=== PATIENT | female | born 1970 | race Caucasian/White ===

== ENCOUNTER 2018-04-03 23:33 | Observation (INO) | payer OTHER ==
[~2018-04-03] VITALS: Ht 170.2 cm; Wt 92.2 kg
[~2018-04-03 23:33] MED LIST: ATENOLOL25 MG OR; ATENOLOL25 MG PO; CEPHALEXIN500 MG PO; CIPRODEX1 ML AD; COUMADIN2 MG OR; COUMADIN2 MG PO; COUMADIN4 MG OR; COUMADIN6 MG OR; EFFEXOR37.5 MG PO; EFFEXOR50 MG OR; FLEXERIL10 MG PO; FLEXERIL5 MG PO; FOLIC ACID1 MG PO; LASIX 20 MG20 MG/TAB PO; PERCOCET 5/325M1 TAB OR; PERCOCET 5/325M1 TAB PO; PREVACID30 M1 OR; PRILOSEC20 MG PO; PRILOSEC40 MG PO; PROTONIX40 M2 PO; TANDEM OR; TESSALON200 MG PO; VENLAFAXINE HC150 M1 PO; WARFARIN2 MG PO; WARFARIN4 MG PO; XANAX1 MG PO; ZOFRAN ODT4 MG PO; ZPAK PO; [UNRECOGNIZED DRUG - OTHER] AD; [UNRECOGNIZED DRUG - SUPPLY]
--- NOTE | 2018-04-03 23:45 | NUR ---
PT AMBULATED TO ROOM
[2018-04-04 00:36] LABS: HEMATOCRIT 43.2 % (37.0-47.0); HEMOGLOBIN 14.5 g/dl (12.0-16.0); IMMATURE GRANULOCYTES 0.4 % (0.0-5.0); MEAN CELL VOLUME 86.2 fL CALC (80.0-100.0); MEAN CORPUSCULAR HGB 28.9 pG CALC (26.0-32.0); MEAN CORPUSCULAR HGB CONC 33.6 g/L CALC (32.0-36.0); NEUT# 8.72 thou/uL (2.00-7.15); RED BLOOD COUNT 5.01 mill/uL (4.20-5.60); RED CELL DISTRI WIDTH 14.5 % (11.5-15.5); URINE BILIRUBIN - DIPSTICK NEGATIVE (NEGATIVE); URINE BLOOD DIPSTICK SMALL (NEGATIVE); URINE CLARITY SL CLOUDY; URINE COLOR YELLOW; URINE GLUCOSE - DIPSTICK NEGATIVE (NEGATIVE); URINE KETONE NEGATIVE (NEGATIVE); URINE LEUK ESTERASE NEGATIVE (NEGATIVE); URINE NITRITE - DIPSTICK NEGATIVE (Negative); URINE PH 5.5 (4.5-8.0); URINE PROTEIN - DIPSTICK NEGATIVE (NEG-TRACE); URINE SPECIFIC GRAVITY >=1.030; URINE UROBILINOGEN - DIPSTICK 0.2 E.U./dL (0.2)
[2018-04-04 00:45] LABS: INTERNATIONAL NORMALIZED RATIO 2.3 RATIO (0.7-1.3); PROTHROMBIN TIME 26.2 SECONDS (9.0-12.5)
[2018-04-04 00:46] LABS: ALBUMIN 4.4 g/dL (3.2-5.0); ALKALINE PHOSPHATASE 123 u/l (38-126); AMYLASE 44 u/l (30-110); ANION GAP 15 (6-22 (CALC)); BILIRUBIN, TOTAL 0.6 mg/dL (0.0-1.4); BUN 19 mg/dL (7-17); BUN/CREATININE RATIO 28 (12-20 (CALC)); CARBON DIOXIDE 27 mmol/l (22-30); CHLORIDE 99 mmol/l (95-108); CREATININE 0.7 mg/dL (0.5-1.0); GFR > 60 ML/MIN (>=60 (CALC)); GFR FOR AFR.AMER. > 60 ML/MIN (>=60 (CALC)); LIPASE 19 u/l (23-300); POTASSIUM 3.7 mmol/l (3.5-5.1); SGOT/AST 24 u/l (14-36); SGPT/ALT 33 u/l (9-52); SODIUM 137 mmol/l (137-146); TOTAL PROTEIN 7.2 g/dL (6.3-8.2)
[2018-04-04 00:53] LABS: URINE BACTERIA FEW hpf; URINE SQUAMOUS EPITHELIAL CELL MODERATE EPI/hpf (0-FEW); URINE WBC 0-2 WBC/hpf (0-5)
--- NOTE | 2018-04-04 01:30 | NUR ---
TO CT VIA W/C
--- NOTE | 2018-04-04 01:44 | NUR ---
RETURNED TO CT VIA W/C.
[2018-04-04] MEDS ORDERED: FOLIC ACID1 MG PO (02:26)
--- NOTE | 2018-04-04 02:53 | NUR ---
REPORT TO Cara GIVENS.
--- NOTE | 2018-04-04 03:00 | NUR ---
PT TO FLOOR WITHOUT INCIDENT. PWD. FEELS BETTER. VSS. RESP EASY REG. ABD SOFT. BBS CLEAR. 4+ APICAL. BS ACTIVE IN ALL FOUR. NO EDEMA.
[2018-04-04 03:10] VITALS: BP 105/72
--- NOTE | 2018-04-04 04:00 | NUR ---
PATIENT ADMITTED FROM ER VIA STRETCHER WITH ER STAFF IN ATTENDANCE. PATIENT ASSISTED TO THE BR TO VOID AND THEN BACK TO BED. AWAKE ALERT AND ORIENTEDX3. PATIENT ADMITTED FOR POSS SBO. CAME TO THE ER AFTER HAVING ABD PAIN STARTING JUST AFTER LUNCH YESTERDAY AND THEN VOMITTING BEFORE COMING TO THE ER. DENIES ANY PAIN OR NAUSEA AT THIS TIME. INSTRUCTED PATIENT THAT SHE IS NPO AT THIS TIME. PROVIDED WITH TOOTHETTE SWAB FOR COMFORT. PATIENT STATES THAT HER LAST BM WAS YESTERDAY-SOFT LIGHT BROWN IN COLOR. ABD IS SOFT-HYPOACTIVE BS. VOIDING QS YELLOW URINE WITHOUT ANY DIFFICULTY. PATIENT WITH MECHANICAL AORTIC VALVE AND TAKES COUMADIN DAILY. ALLERGIC TO VANCOMYCIN. HEP LOCK TO RIGHT WRIST INTACT-FLUSHED WITH SALINE WITH GOOD BLOOD RETURN. IVF NS HUNG AND INFUSING AT 125CC/HR. SAFETY PRECAUTIONS REVIEWED WITH PATIENT INSRUCTED ON USE OF NURSE CALL LIGHT SYSTEM AND TV REMOTE. CALL LIGHT IN REACH. WILL CONT TO MONITOR.
--- NOTE | 2018-04-04 07:06 | NUR ---
BEDSIDE REPORT RECEIVED BY TATY. PT IS RESTING IN BED WITH NO S/S OF DISTRESS NOTED. PT DENIES NEEDS AT THIS TIME. CALL LIGHT IN REACH.
[2018-04-04 07:44] VITALS: BP 90/57
--- NOTE | 2018-04-04 08:00 | NUR ---
ASSSEMENT DONE. RESPS EVEN AND UNLABORED. NS 125ML/HR INFUSING WELL. PT STATED PAIN IN ABDOMEN IS 1/10 BUT DENIES PAIN MEDICATION AT THIS TIME. SAFETY PRECAUTIONS REINFORCED AND CALL LIGHT IN REACH.
--- NOTE | 2018-04-04 08:48 | NUR ---
BRAYAN BLEVINS AT BEDSIDE TO ASSESS PT.
--- NOTE | 2018-04-04 09:19 | NUR ---
PT WENT TO X-RAY VIA WHEELCHAIR BY VOLUNTEER.
--- NOTE | 2018-04-04 09:38 | NUR ---
DR. HARP IN ROOM TO ASSESS PT, BUT PT IS STILL IN X-RAY. STATED WILL CHECK ON PT LATER.
--- NOTE | 2018-04-04 11:23 | NUR ---
PT ARRIVED BACK ON MS BY WHEELCHAIR @ 1124. PT WAS TRANSFERED BY A VOLUNTEER.
--- NOTE | 2018-04-04 11:27 | NUR ---
PT BACK FROM X-RAY. PT DENIES NEEDS AT THIS TIME. NO S/S OF DISTRESS NOTED. CALL LIGHT IN REACH.
--- NOTE | 2018-04-04 12:56 | NUR ---
DR. REZA AT BEDSIDE TO ASSESS PT.
--- NOTE | 2018-04-04 16:00 | NUR ---
PT IS RESTING IN BED AND DENIES NEEDS AT THIS TIME. CALL LIGHT IN REACH.
[2018-04-04] MEDS ORDERED: COUMADIN4 MG PO (17:10)
--- NOTE | 2018-04-04 18:01 | NUR ---
Discharge instructions given. Patient verbalizes understanding of same. Discharged in stable condition via Wheelchair to Home with staff. All belongings sent with pt.
== END 2018-04-04 18:06 | disposition home or self-care (01) | DRG 392 ==
LOC: ED 23:33 → ED-I 23:59 → ED 23:59 → ED-I 04-04 02:10 → ED 04-04 02:28 → MS2 04-04 02:30
PROVIDERS: Emergency Medicine; ADMIT Internal Medicine; ATTEND Internal Medicine
DX: K52.9 Noninfective gastroenteritis and colitis, unspecified (principal); I10 Essential (primary) hypertension; D50.9 Iron deficiency anemia, unspecified; Z79.891 Long term (current) use of opiate analgesic; Z79.01 Long term (current) use of anticoagulants; Z95.2 Presence of prosthetic heart valve
CPT/HCPCS: G0378; S0164

== ENCOUNTER 2018-10-08 15:26 | Emergency (ER) | payer OTHER ==
[~2018-10-08] VITALS: Ht 170.2 cm; Wt 90.9 kg
[~2018-10-08 15:26] MED LIST changes: +COUMADIN4 MG PO
[2018-10-08 16:03] LABS: HEMATOCRIT 47.1 % (37.0-47.0); HEMOGLOBIN 15.3 g/dl (12.0-16.0); IMMATURE GRANULOCYTES 0.4 % (0.0-5.0); MEAN CELL VOLUME 83.7 fL CALC (80.0-100.0); MEAN CORPUSCULAR HGB 27.2 pG CALC (26.0-32.0); MEAN CORPUSCULAR HGB CONC 32.5 g/L CALC (32.0-36.0); NEUT# 11.42 thou/uL (2.00-7.15); RED BLOOD COUNT 5.63 mill/uL (4.20-5.60); RED CELL DISTRI WIDTH 15.1 % (11.5-15.5)
[2018-10-08 16:16] LABS: ANION GAP 16 (6-22 (CALC)); BILIRUBIN, TOTAL 0.9 mg/dL (0.0-1.4); BUN 17 mg/dL (7-17); BUN/CREATININE RATIO 23 (12-20 (CALC)); CARBON DIOXIDE 26 mmol/l (22-30); CHLORIDE 100 mmol/l (95-108); CREATININE 0.8 mg/dL (0.5-1.0); GFR > 60 ML/MIN (>=60 (CALC)); GFR FOR AFR.AMER. > 60 ML/MIN (>=60 (CALC)); LIPASE 22 u/l (23-300); SGOT/AST 33 u/l (14-36); SODIUM 137 mmol/l (137-146)
[2018-10-08 16:18] LABS: ALBUMIN 5.2 g/dL (3.2-5.0); ALKALINE PHOSPHATASE 159 u/l (38-126); TOTAL PROTEIN 8.9 g/dL (6.3-8.2)
[2018-10-08 16:22] LABS: INTERNATIONAL NORMALIZED RATIO 1.8 RATIO (0.7-1.3); PROTHROMBIN TIME 18.6 SECONDS (9.0-12.5)
[2018-10-08 16:25] VITALS: BP 130/84
[2018-10-08 16:40] LABS: URINE BILIRUBIN - DIPSTICK NEGATIVE (NEGATIVE); URINE BLOOD DIPSTICK NEGATIVE (NEGATIVE); URINE COLOR YELLOW; URINE GLUCOSE - DIPSTICK NEGATIVE (NEGATIVE); URINE KETONE 15 mg/dL (NEGATIVE); URINE LEUK ESTERASE NEGATIVE (NEGATIVE); URINE NITRITE - DIPSTICK NEGATIVE (Negative); URINE PH 5.5 (4.5-8.0); URINE PROTEIN - DIPSTICK NEGATIVE (NEG-TRACE); URINE SPECIFIC GRAVITY >=1.030; URINE UROBILINOGEN - DIPSTICK 0.2 E.U./dL (0.2)
[2018-10-08] MEDS ORDERED: ONDANSETRON4 MG PO (18:00)
== END 2018-10-08 18:12 | disposition left against medical advice (07) | DRG 390 ==
LOC: ED 15:26 → ED-I 17:40 → ED 18:12
PROVIDERS: Family Medicine
DX: K56.609 Unspecified intestinal obstruction, unspecified as to partial versus complete obstruction (principal); I10 Essential (primary) hypertension; F17.210 Nicotine dependence, cigarettes, uncomplicated; Z91.19 Patient's noncompliance with other medical treatment and regimen
CPT/HCPCS: Q9967

== ENCOUNTER 2019-02-18 19:43 | Emergency (ER) | payer OTHER ==
[~2019-02-18] VITALS: Ht 170.2 cm; Wt 91.2 kg
[~2019-02-18 19:43] MED LIST changes: +ONDANSETRON4 MG PO
[2019-02-18 21:14] LABS: URINE BLOOD DIPSTICK NEGATIVE (NEGATIVE); URINE COLOR YELLOW; URINE GLUCOSE - DIPSTICK NEGATIVE (NEGATIVE); URINE KETONE >=80 mg/dL (NEGATIVE); URINE LEUK ESTERASE NEGATIVE (NEGATIVE); URINE NITRITE - DIPSTICK NEGATIVE (Negative); URINE PH 6.5 (4.5-8.0); URINE PROTEIN - DIPSTICK TRACE mg/dL (NEG-TRACE); URINE UROBILINOGEN - DIPSTICK 0.2 E.U./dL (0.2)
[2019-02-18] MEDS ORDERED: LOPRESSOR25 MG PO (21:16)
[2019-02-18 21:18] LABS: URINE BILIRUBIN - DIPSTICK NEGATIVE (NEGATIVE)
[2019-02-18] MEDS ORDERED: MAGIMIN80 MG PO (21:18)
[2019-02-18] MEDS ORDERED: CHELATED POTASS95 MG PO (21:18)
[2019-02-18] MEDS ORDERED: OTEZLA 10 & 201 TAB PO (21:18)
[2019-02-18] MEDS ORDERED: WARFARIN4 MG PO (21:19)
[2019-02-18] MEDS ORDERED: WARFARIN2 MG PO (21:19)
[2019-02-18] MEDS ORDERED: ALPRAZOLAM0.25 MG PO (21:20)
[2019-02-18 21:21] LABS: HEMATOCRIT 38.4 % (37.0-47.0); HEMOGLOBIN 12.1 g/dl (12.0-16.0); IMMATURE GRANULOCYTES 0.4 % (0.0-5.0); MEAN CELL VOLUME 77.9 fL CALC (80.0-100.0); MEAN CORPUSCULAR HGB 24.5 pG CALC (26.0-32.0); MEAN CORPUSCULAR HGB CONC 31.5 g/L CALC (32.0-36.0); NEUT# 5.7 thou/uL (2.00-7.15); RED BLOOD COUNT 4.93 mill/uL (4.20-5.60); RED CELL DISTRI WIDTH 15.4 % (11.5-15.5)
[2019-02-18 21:30] LABS: PROTHROMBIN TIME 14.7 SECONDS (9.0-12.5)
[2019-02-18 21:31] LABS: INTERNATIONAL NORMALIZED RATIO 1.4 RATIO (0.7-1.3)
[2019-02-18 21:32] LABS: ALBUMIN 4.8 g/dL (3.2-5.0); ALKALINE PHOSPHATASE 120 u/l (38-126); AMYLASE 90 u/l (30-110); BILIRUBIN, TOTAL 0.6 mg/dL (0.0-1.4); BUN 13 mg/dL (7-17); BUN/CREATININE RATIO 20 (12-20 (CALC)); CARBON DIOXIDE 26 mmol/l (22-30); CHLORIDE 100 mmol/l (95-108); CREATININE 0.7 mg/dL (0.5-1.0); GFR > 60 ML/MIN (>=60 (CALC)); GFR FOR AFR.AMER. > 60 ML/MIN (>=60 (CALC)); LIPASE 25 u/l (23-300); SGOT/AST 26 u/l (14-36); SODIUM 137 mmol/l (137-146); TOTAL PROTEIN 7.8 g/dL (6.3-8.2)
[2019-02-18 21:34] LABS: ANION GAP 14 (6-22 (CALC)); POTASSIUM 3.4 mmol/l (3.5-5.1)
[2019-02-18 21:44] LABS: MYOGLOBIN 24 ng/mL (0 - 62)
[2019-02-18] MEDS ORDERED: LORTAB 1010 MG PO (23:13)
[2019-02-18 23:34] VITALS: BP 140/79
== END 2019-02-18 23:34 | disposition home or self-care (01) | DRG 392 ==
LOC: ED 19:43
PROVIDERS: Emergency Medicine
DX: R10.30 Lower abdominal pain, unspecified (principal); T47.4X5A Adverse effect of other laxatives, initial encounter; I10 Essential (primary) hypertension; F17.200 Nicotine dependence, unspecified, uncomplicated
CPT/HCPCS: Q9967

== ENCOUNTER 2019-09-28 | Emergency (ER) | payer OTHER ==
[~2019-09-28] MED LIST changes: +ALPRAZOLAM0.25 MG PO; +LASIX 20 MG TAB20 MG PO; -LASIX 20 MG20 MG/TAB PO; +LOPRESSOR25 MG PO; +LORTAB 1010 MG PO; +MAGIMIN80 MG PO; +OTEZLA 10 & 201 TAB PO; +POTASSIUM99 MG PO
[2019-09-28] MEDS ORDERED: LOPRESSOR 550 MG/TAB PO (15:43)
[2019-09-28] MEDS ORDERED: OMEPRAZOLE DR40 MG PO (15:44)
== END 2019-09-28 16:05 | disposition home or self-care (01) | DRG 605 ==
PROC: 0HQFXZZ Repair Right Hand Skin, External Approach (ICD-10-PCS; principal; 2019-09-28)
DX: S61.011A Laceration without foreign body of right thumb without damage to nail, initial encounter (principal); I10 Essential (primary) hypertension; F17.210 Nicotine dependence, cigarettes, uncomplicated; W27.8XXA Contact with other nonpowered hand tool, initial encounter; Y93.89 Activity, other specified; Y92.009 Unspecified place in unspecified non-institutional (private) residence as the place of occurrence of the external cause; Z79.01 Long term (current) use of anticoagulants

== ENCOUNTER 2019-09-29 13:15 | Emergency (ER) | payer OTHER ==
[~2019-09-29 13:15] MED LIST changes: +LOPRESSOR 550 MG/TAB PO; +OMEPRAZOLE DR40 MG PO
[2019-09-29 13:50] VITALS: BP 143/88
== END 2019-09-29 13:50 | disposition home or self-care (01) | DRG 950 ==
LOC: ED 13:15
DX: S61.011D Laceration without foreign body of right thumb without damage to nail, subsequent encounter (principal); X58.XXXD Exposure to other specified factors, subsequent encounter

== ENCOUNTER 2020-03-06 13:42 | Emergency (ER) | payer OTHER ==
[~2020-03-06] VITALS: Ht 170.2 cm; Wt 86.4 kg
[2020-03-06 15:31] LABS: URINE BILIRUBIN - DIPSTICK NEGATIVE (NEGATIVE); URINE BLOOD DIPSTICK NEGATIVE (NEGATIVE); URINE COLOR YELLOW; URINE GLUCOSE - DIPSTICK NEGATIVE (NEGATIVE); URINE KETONE NEGATIVE (NEGATIVE); URINE LEUK ESTERASE NEGATIVE (NEGATIVE); URINE NITRITE - DIPSTICK NEGATIVE (Negative); URINE PROTEIN - DIPSTICK NEGATIVE (NEG-TRACE); URINE SPECIFIC GRAVITY >=1.030; URINE UROBILINOGEN - DIPSTICK 0.2 E.U./dL (0.2)
[2020-03-06] MEDS ORDERED: DULCOLAX5 MG PO (15:43)
[2020-03-06] MEDS ORDERED: MIRALAX3350 N1 PO (15:43)
[2020-03-06] MEDS ORDERED: MAGNESIUM296 ML/BTL PO (15:43)
[2020-03-06 15:55] VITALS: BP 125/65
== END 2020-03-06 15:55 | disposition home or self-care (01) | DRG 392 ==
LOC: ED 13:42
PROVIDERS: Student in an Organized Health Care Education/Training Program
DX: K59.00 Constipation, unspecified (principal); I10 Essential (primary) hypertension; F17.200 Nicotine dependence, unspecified, uncomplicated

== ENCOUNTER 2021-02-03 21:40 | Emergency (ER) | payer OTHER ==
[~2021-02-03] VITALS: Ht 170.2 cm; Wt 109.0 kg
[~2021-02-03 21:40] MED LIST changes: +DULCOLAX5 MG PO; +MAGNESIUM296 ML/BTL PO; +MIRALAX3350 N1 PO
[2021-02-03] MEDS ORDERED: JANTOVEN2 MG PO (22:01)
[2021-02-03] MEDS ORDERED: JANTOVEN4 MG PO (22:03)
[2021-02-03] MEDS ORDERED: IRON325 M1 (22:07)
[2021-02-03] MEDS ORDERED: POTASSI24 XX (22:10)
[2021-02-03 22:15] LABS: HEMOGLOBIN 13.3 g/dl (12.0-16.0); IMMATURE GRANULOCYTES 0.3 % (0.0-5.0); MEAN CORPUSCULAR HGB 28.7 pG CALC (26.0-32.0); MEAN CORPUSCULAR HGB CONC 32.4 g/dL CAL (32.0-36.0); NEUT# 3.72 thou/uL (2.00-7.15); RED BLOOD COUNT 4.64 mill/uL (4.20-5.60); RED CELL DISTRI WIDTH 13.5 % (11.5-15.5)
[2021-02-03 22:19] LABS: MEAN CELL VOLUME 88.4 fL CALC (80.0-100.0)
[2021-02-03 22:30] LABS: HCG SERUM/URINE (NEG/POS) NEGATIVE (NEGATIVE)
[2021-02-03 22:33] LABS: URINE BILIRUBIN - DIPSTICK NEGATIVE (NEGATIVE); URINE BLOOD DIPSTICK NEGATIVE (NEGATIVE); URINE COLOR YELLOW; URINE GLUCOSE - DIPSTICK NEGATIVE (NEGATIVE); URINE KETONE NEGATIVE (NEGATIVE); URINE LEUK ESTERASE NEGATIVE (NEGATIVE); URINE PH 5.5 (4.5-8.0); URINE PROTEIN - DIPSTICK NEGATIVE (NEG-TRACE); URINE SPECIFIC GRAVITY >=1.030; URINE UROBILINOGEN - DIPSTICK 0.2 E.U./dL (0.2)
[2021-02-03 22:37] LABS: URINE NITRITE - DIPSTICK NEGATIVE (Negative)
[2021-02-03 22:50] LABS: ALBUMIN 4.1 g/dL (3.2-5.0); ALKALINE PHOSPHATASE 122 u/l (38-126); ANION GAP 10 (6-22 (CALC)); BILIRUBIN, TOTAL 0.5 mg/dL (0.0-1.4); BUN 23 mg/dL (7-17); BUN/CREATININE RATIO 24 (12-20 (CALC)); CARBON DIOXIDE 24 mmol/l (22-30); CHLORIDE 102 mmol/l (95-108); GFR 59 ML/MIN (>=60 (CALC)); GFR FOR AFR.AMER. > 60 ML/MIN (>=60 (CALC)); LIPASE 48 u/l (23-300); POTASSIUM 3.9 mmol/l (3.5-5.1); SGOT/AST 35 u/l (14-36); SODIUM 132 mmol/l (137-146); TOTAL PROTEIN 7.2 g/dL (6.3-8.2)
[2021-02-03 22:52] LABS: ACT PARTIAL THROMBO TIME 40.9 SECONDS (20.0-32.5); D-DIMER 0.5 mg/L (0.19-0.60); INTERNATIONAL NORMALIZED RATIO 2.1 RATIO (0.7-1.3); PROTHROMBIN TIME 21.4 SECONDS (9.0-12.5)
[2021-02-04 01:07] VITALS: BP 114/71
== END 2021-02-04 01:16 | disposition home or self-care (01) | DRG 310 ==
LOC: ED 21:40
DX: R00.2 Palpitations (principal); F41.9 Anxiety disorder, unspecified; I10 Essential (primary) hypertension; K21.9 Gastro-esophageal reflux disease without esophagitis; F17.200 Nicotine dependence, unspecified, uncomplicated; T43.506A Underdosing of unspecified antipsychotics and neuroleptics, initial encounter; Z91.138 Patient's unintentional underdosing of medication regimen for other reason; Z79.01 Long term (current) use of anticoagulants; Z20.822 Contact with and (suspected) exposure to COVID-19; Z95.2 Presence of prosthetic heart valve
CPT/HCPCS: Q9967

== ENCOUNTER 2021-03-17 16:57 | Inpatient (IN) | payer OTHER ==
[~2021-03-17] VITALS: Ht 170.2 cm; Wt 89.0 kg
[~2021-03-17 16:57] MED LIST changes: +IRON325 M1; +JANTOVEN2 MG PO; +JANTOVEN4 MG PO; +POTASSI24 XX
[2021-03-17 17:46] LABS: IMMATURE GRANULOCYTES 0.2 % (0.0-5.0); MEAN CELL VOLUME 87.8 fL CALC (80.0-100.0); MEAN CORPUSCULAR HGB 29.3 pG CALC (26.0-32.0); MEAN CORPUSCULAR HGB CONC 33.4 g/dL CAL (32.0-36.0); NEUT# 10.41 thou/uL (2.00-7.15); RED BLOOD COUNT 5.49 mill/uL (4.20-5.60); RED CELL DISTRI WIDTH 13.4 % (11.5-15.5)
[2021-03-17 17:51] LABS: HEMATOCRIT 48.2 % (37.0-47.0); HEMOGLOBIN 16.1 g/dl (12.0-16.0)
[2021-03-17 17:57] LABS: ALKALINE PHOSPHATASE 164 u/l (38-126); AMYLASE 73 u/l (30-110); ANION GAP 18 (6-22 (CALC)); BUN 19 mg/dL (7-17); BUN/CREATININE RATIO 23 (12-20 (CALC)); CARBON DIOXIDE 24 mmol/l (22-30); CHLORIDE 97 mmol/l (95-108); CREATININE 0.8 mg/dL (0.5-1.0); GFR > 60 ML/MIN (>=60 (CALC)); GFR FOR AFR.AMER. > 60 ML/MIN (>=60 (CALC)); LIPASE 30 u/l (23-300); MAGNESIUM 2.4 mg/dL (1.6-2.3); POTASSIUM 4.4 mmol/l (3.5-5.1); SGOT/AST 40 u/l (14-36); SODIUM 135 mmol/l (137-146)
[2021-03-17 17:59] LABS: ALBUMIN 5.1 g/dL (3.2-5.0); BILIRUBIN, TOTAL 0.9 mg/dL (0.0-1.4); TOTAL PROTEIN 9.4 g/dL (6.3-8.2)
--- NOTE | 2021-03-17 18:00 | NUR ---
PATIENT DENIES ANY NEEDS CURRENTLY
--- NOTE | 2021-03-17 19:41 | NUR ---
REPORT TO JONO PATTERSON
[2021-03-17 19:45] VITALS: BP 95/62
[2021-03-17 20:06] VITALS: BP 135/70
--- NOTE | 2021-03-17 20:10 | NUR ---
pt denies pain at this time. plan ct no contrast. radio adjuster notified
[2021-03-17 22:11] VITALS: BP 118/67
--- NOTE | 2021-03-17 22:38 | NUR ---
PATIENT AGREES WITH PLAN FOR ADMISSION
[2021-03-17 22:59] LABS: URINE BILIRUBIN - DIPSTICK NEGATIVE (NEGATIVE); URINE BLOOD DIPSTICK NEGATIVE (NEGATIVE); URINE COLOR YELLOW; URINE GLUCOSE - DIPSTICK NEGATIVE (NEGATIVE); URINE KETONE NEGATIVE (NEGATIVE); URINE LEUK ESTERASE NEGATIVE (NEGATIVE); URINE PH 5.5 (4.5-8.0); URINE PROTEIN - DIPSTICK NEGATIVE (NEG-TRACE); URINE SPECIFIC GRAVITY >=1.030; URINE UROBILINOGEN - DIPSTICK 0.2 E.U./dL (0.2)
[2021-03-17 23:00] LABS: URINE NITRITE - DIPSTICK NEGATIVE (Negative)
[2021-03-17 23:11] VITALS: BP 107/73
[2021-03-17 23:40] LABS: INTERNATIONAL NORMALIZED RATIO 2.3 RATIO (0.7-1.3); PROTHROMBIN TIME 22.6 SECONDS (9.0-12.5)
[2021-03-18] VITALS (7 sets, daily range): BP systolic 95–127; BP diastolic 57–83
--- NOTE | 2021-03-18 00:29 | NUR ---
REPORT GIVEN YESENIA LOPEZ FOR ADMISSION. PT AGREEES WITH ADMIT PLAN
--- NOTE | 2021-03-18 00:34 | NUR ---
PATIENT BEING TRANSPORTED TO FLOOR VIA WHEELCHAIR BY YESENIA RUTHERFORD
--- NOTE | 2021-03-18 01:21 | NUR ---
RECEIVED REPORT FROM ED NURSE JONO, ARRIVED TO FLOOR AT 0035 PATIENT TRANSPORTED VIA WHEELCHAIR, AMBULATORY, STATED PAIN RELIEF, ALERT ORIENTED, WITH ONGOING IV NS @ 175CC/HR INFUSING WELL ON RAC G18, ADMISSION ASSESSMENT DONE, PATIENT EDUCATED ON NPO STATUS, ORIENTED TO ROOM AND CALL LIGHT SYSTEM.
--- NOTE | 2021-03-18 01:59 | NUR ---
ED NURSE JONO REPORTED THAT DR. PEÑA WAS ALSO CONSULTED ON THE CASE.
--- NOTE | 2021-03-18 04:43 | NUR ---
PATIENT RESTING IN BED, AWAKE AT THIS TIME, NPO COMPLAINTS, TECH IN ROOM CALL LIGHT AT REACH.
[2021-03-18 06:00] LABS: MEAN CELL VOLUME 91.1 fL CALC (80.0-100.0); MEAN CORPUSCULAR HGB 29.1 pG CALC (26.0-32.0); RED BLOOD COUNT 4.29 mill/uL (4.20-5.60); RED CELL DISTRI WIDTH 13.7 % (11.5-15.5)
[2021-03-18 06:01] LABS: HEMATOCRIT 39.1 % (37.0-47.0); HEMOGLOBIN 12.5 g/dl (12.0-16.0)
[2021-03-18 06:26] LABS: ANION GAP 10 (6-22 (CALC)); BUN 17 mg/dL (7-17); BUN/CREATININE RATIO 25 (12-20 (CALC)); CARBON DIOXIDE 25 mmol/l (22-30); CHLORIDE 104 mmol/l (95-108); CREATININE 0.7 mg/dL (0.5-1.0); GFR > 60 ML/MIN (>=60 (CALC)); GFR FOR AFR.AMER. > 60 ML/MIN (>=60 (CALC)); POTASSIUM 3.9 mmol/l (3.5-5.1); SODIUM 135 mmol/l (137-146)
--- NOTE | 2021-03-18 07:00 | NUR ---
SHIFT REPORT, PT SITTING UP IN BED AWAKE ALERT AND ORIENTED, NO C/O DISCOMFORT, IVF INFUSING, CALL HICKMAN IN REACH, BED LOCKED IN LOWEST POSITION.
[2021-03-18] MEDS ORDERED: WARFARIN2 MG PO ×3 (10:27→15:09)
[2021-03-18] MEDS ORDERED: WARFARIN4 MG PO ×2 (10:28→14:55)
--- NOTE | 2021-03-18 12:00 | NUR ---
TRANSPORTED OFF UNIT VIA W/C BY VOLUNTEER TO IMAGING PROCEDURE, RETURNED TO ROOM AFTER APPROX 1HR AND SETTLED IN BED, THEN LEFT AGAIN FOR COMPLETION OF PROCEDURE AND RETURNED. REQUESTING LIQUIDS BUT INFORMED WILL HVE TO KRISTINA ORDER FROM , STATED UNDERSTANDING.
--- NOTE | 2021-03-18 12:00 | NUR ---
CECY FROM RADIOLOGY QUESTIONED SBS WITH CONTRAST PT IS ALLERGIC TO CONTRAST,DR PRESLEY NOTIFIED, ORDERED TO PREMEDICATE PT PER HOSPITAL'S PROTOCOL, THIS WAS DONE, PT WENT FOR PROCEDURE AND NO ADVERSE/UNUSUAL SYMPTOMS WAS REPORTED.
[2021-03-18] MEDS ORDERED: POTASSIUM99 MG PO (14:58)
[2021-03-18] MEDS ORDERED: CVS IRON PO (15:03)
[2021-03-18] MEDS ORDERED: BL MAGNESIUM250 MG PO (15:04)
[2021-03-18] MEDS ORDERED: FOLIC ACID800 MC1 PO (15:05)
[2021-03-18] MEDS ORDERED: JANTOVEN2 M1 PO (15:07)
--- NOTE | 2021-03-18 16:00 | NUR ---
RELAXING IN BED REQUEST LIQUIDS, GIVEN, NO C/O DISCOMFORT.
--- NOTE | 2021-03-18 17:02 | NUR ---
SITTING UP IN BED CONVERSING ON PHONE, REQUESTING SNACK WHICH WAS GIVEN, NO C/O DISCOMFORT, ALL NEEDS ADDRESSED.
--- NOTE | 2021-03-18 20:00 | NUR ---
PATIENT UP IN ROOM-STEADY ON HER FEET. PATIENT WITH NO COMPLAINTS AT THIS TIME. STATES THAT SHE IS HAVING FREQUET STOOLS SINCE HAVING SB SERIES. [id number] ANY DIFFICULTY WITH URINATION. ABD IS SOFT WITH BS+. LUNGS ARE CLEAR. NO PERIPHERAL EDEMA NOTED. PULSES ARE PALPABLE. TEDS IN PLACE. TAKING FULL LIQUIDS WITHOUT ANY DIFFICULTY. DENIES ANY NAUSEA OR ABD PAIN AT THIS TIME. PROVIDED WITH APPLE JUICE AND PUDDING FOR SNACK.CALL LIGHT IN REACH. WILL CONT TO MONITOR.
--- NOTE | 2021-03-19 | NUR ---
PATIENT SITTING UP ON THE COUCH. NO COMPLAINTS AT THIS TIME. IVF D51/2NS PATENT AND INFUSING AT 125CC/HR. TAKING PO FLUIDS AND TOLERATING WELL. CALL LIGHT IN REACH. WILL CONT TO MONITOR.
--- NOTE | 2021-03-19 02:54 | NUR ---
PATIENT RESTING IN BED AT THIS TIME-AWAKE WATCHING TV. NO COMPLAINTS AT THIS TIME. DENIES ANY PAIN OR NAUSEA. IVF PATENT AND INFUSING AT 125CC/HR. CALL LIGHT IN REACH. WILL CONT TO MONITOR.
[2021-03-19 04:28] VITALS: BP 125/76
--- NOTE | 2021-03-19 04:47 | NUR ---
PATIENT RESTING IN BED AT THIS TIME WITH EYES CLOSED. RESPS ARE EVEN AND UNLABORED. APPEARS TO BE SLEEPING FINALLY. IVF PATENT AND INFUSING VIA RAC AT 125CC/HR. CALL LIGHT IN REACH. WILL CONT TO MONITOR.
[2021-03-19 05:07] LABS: HEMATOCRIT 35.8 % (37.0-47.0); HEMOGLOBIN 11.5 g/dl (12.0-16.0); MEAN CORPUSCULAR HGB 29.6 pG CALC (26.0-32.0); MEAN CORPUSCULAR HGB CONC 32.1 g/dL CAL (32.0-36.0); RED BLOOD COUNT 3.89 mill/uL (4.20-5.60); RED CELL DISTRI WIDTH 13.5 % (11.5-15.5)
[2021-03-19 05:21] LABS: INTERNATIONAL NORMALIZED RATIO 3.1 RATIO (0.7-1.3); PROTHROMBIN TIME 30.3 SECONDS (9.0-12.5)
[2021-03-19 05:29] LABS: ANION GAP 11 (6-22 (CALC)); BUN 10 mg/dL (7-17); BUN/CREATININE RATIO 18 (12-20 (CALC)); CARBON DIOXIDE 28 mmol/l (22-30); CHLORIDE 102 mmol/l (95-108); CREATININE 0.6 mg/dL (0.5-1.0); GFR > 60 ML/MIN (>=60 (CALC)); GFR FOR AFR.AMER. > 60 ML/MIN (>=60 (CALC)); POTASSIUM 3.7 mmol/l (3.5-5.1); SODIUM 137 mmol/l (137-146)
--- NOTE | 2021-03-19 07:20 | NUR ---
REPORT RECEIVED FROM YESENIA GIVENS
--- NOTE | 2021-03-19 08:10 | NUR ---
PT RESTING IN SEMI FOWLERS POSITION,A&O X3;VS OBTAINED AND ASSESSMENT COMPLETED;PT DENIES ANY CURRENT PAIN OR DISCOMFORTS,PAIN SCALE AND REPORTING EDUCATED;RESPIRATIONS EVEN AND UNLABORED ON RA,CLEAR LUNG SOUNDS;ABDOMEN SOFT ON PALPATION AND ACTIVE IN ALL 4 QUADRANTS;STRONG PEDAL PULSES;SKIN INTACT;#18G TO RAC INFUSING D5 1/2 NS @ 125ML/HR,SITE APPEARS HEALTHY;PT DENIES ANY ADDITIONAL NEEDS AND IS ENCOURAGED TO CALL FOR ASSISTANCE IF NEEDED;FALL PRECAUTIONS IN PLACE WITH BED IN THE LOWEST POSITION AND CALL LIGHT IN REACH;WILL CONTINUE TO MONITOR
[2021-03-19 08:25] VITALS: BP 119/77
[2021-03-19 08:32] VITALS: BP 119/77
--- NOTE | 2021-03-19 11:30 | NUR ---
PT RESTING IN SEMI FOWLERS POSITION;RESPIRATIONS EVEN AND UNLABORED ON RA;PT DENIES ANY CURRENT PAIN OR DISCOMFORTS;IV SITE PATENT INFUSING WITH EASE PER ORDER;PT DENIES ANY ADDITIONAL NEEDS AND IS ENCOURAGED TO CALL FOR ASSISTANCE IF NEEDED;FALL PRECAUTIONS REMAIN IN PLACE WITH BED IN THE LOWEST POSITION AND CALL LIGHT IN REACH;WILL CONTINUE TO MONITOR
--- NOTE | 2021-03-19 11:40 | NUR ---
AT BEDSIDE DISCUSSING POC WITH PT.
[2021-03-19] MEDS ORDERED: ONDANSETRON4 MG PO (12:17)
--- NOTE | 2021-03-19 12:24 | NUR ---
ALL DISCHARGE INSTRUCTIONS PROVIDED AT THIS TIME;PT ENCOURAGED TO F/U WITH PCP AND TAKE ZOFRAN NEEDED FOR NAUSEA;PT VERBALIZES UNDERSTANDING AND DENIES ANY ADDITIONAL QUESTIONS OR NEEDS;IV SITE REMOVED WITH CATHETER INTACT;WHEEELCHAIR TO BE PROVIDED FOR D/C HOME;PT TO DRIVE SELF HOME;WILL CONTINUE TO MONITOR
--- NOTE | 2021-03-19 12:30 | NUR ---
Discharge instructions given. Patient verbalizes understanding of same. Discharged in stable condition via Wheelchair to Home with *Other. All belongings sent with pt. [facility]ALL BELONGINGS LEFT WITH PT.PT TO TRANSPORT SELF HOME.
--- NOTE | 2021-03-21 16:08 | NUR ---
PT CALLED WRITTER REQUESTING LATE WORK RELEASE TO BE FAXED TO WORK FOR DATES OF ADMISSION.RELEASE FAXED AT THIS TIME PER REQUEST. FX # PROVIDED [phone].
== END 2021-03-19 12:30 | disposition home or self-care (01) | DRG 390 ==
LOC: ED 16:57 → ED-I 22:25 → ED 22:37 → MS2 22:37
PROVIDERS: Emergency Medicine; Nurse Practitioner; ADMIT Hospitalist; ATTEND Internal Medicine
DX: K56.600 Partial intestinal obstruction, unspecified as to cause (principal); K59.00 Constipation, unspecified; I11.0 Hypertensive heart disease with heart failure; I50.9 Heart failure, unspecified; F41.9 Anxiety disorder, unspecified; K21.9 Gastro-esophageal reflux disease without esophagitis; Z87.74 Personal history of (corrected) congenital malformations of heart and circulatory system; Z95.2 Presence of prosthetic heart valve; Z91.041 Radiographic dye allergy status; Z79.01 Long term (current) use of anticoagulants; Z20.822 Contact with and (suspected) exposure to COVID-19